=== PATIENT | male | born 1980 | race Caucasian/White ===

== ENCOUNTER 2019-01-09 14:33 | Inpatient (IN) | payer OTHER ==
[~2019-01-09] VITALS: Ht 185.4 cm; Wt 85.0 kg
--- NOTE | 2019-01-09 14:38 | NUR ---
ANYA FROM [facility]; REPORT RECIEVED FROM EMS. PT C/O LEFT CALF PAIN X 2 WEEKS. DX WITH BILATERAL PE AND LEFT DVT. TREATED BLOCK MECHANIC WITH LOVENOX AND NORCO. EKG TAKEN ON ARRIVAL. ALL MONITORS IN PLACE. CALL LIGHT IN REACH. JACOB CADE AT BEDSIDE FOR INITIAL ASSESSMENT. Addendum: 01/09/19 at 1542 by PHYLLIS ANYA FROM [facility]; REPORT RECIEVED FROM EMS. PT C/O LEFT CALF PAIN X 2 WEEKS. DX WITH BILATERAL PE AND LEFT DVT. TREATED BLOCK MECHANIC WITH LOVENOX AND NORCO. EKG TAKEN ON ARRIVAL. ALL MONITORS IN PLACE. CALL LIGHT IN REACH. JACOB CADE AT BEDSIDE FOR INITIAL ASSESSMENT.
[2019-01-09] MEDS ORDERED: COLC0.6T37 PO (15:33)
[2019-01-09] MEDS ORDERED: IBUP-1484 PO (15:33)
--- NOTE | 2019-01-09 15:40 | NUR ---
pt resting on gurney, all monitors in place, remains nsr on cardiac rn. pt is a&o, resps even and unlabored, denies chest pain/pressure/sob. awaiting admit order and room assignment at this time.
[2019-01-09] MEDS ORDERED: HYDROcodone/APAP 5/325 TABLET ONE (16:14)
--- NOTE | 2019-01-09 16:17 | NUR ---
PT A&O, RESPS EVEN AND UNLABORED. NSR ON CAMERA TECHNICIAN, NO ECTOPY. PT MEDICATED FOR 7/10 LEFT CALF PAIN. AWAITING CARD TELE ROOM ASSIGNMENT AND TRANSPORT.
[2019-01-09] MEDS ORDERED: HYDROcodone/APAP 5/325 TABLET PO ONE (16:30)
[2019-01-09] MEDS ORDERED: SODIUM CHLORIDE FLUSH 10ML SYR IVF PRN (16:30)
--- NOTE | 2019-01-09 16:46 | NUR ---
hospitalist at bedside to admit pt
--- NOTE | 2019-01-09 17:03 | NUR ---
REPORT CALLED TO RECEIVING CÉSAR BAHENA. PT AWAITING TRANSPORT TO ROOM 515.
--- NOTE | 2019-01-09 17:20 | NUR ---
Per [facility], pt was given lovenox weight based sq injection, dosed 1mg/kg at 1154 this am. This was confirmed by pt. receiving RN notified.
[2019-01-09] MEDS ORDERED: LABETALOL 5MG/ML, 20ML IVPush PRN (17:30)
[2019-01-09] MEDS ORDERED: hydrALAzine 20 MG/ML, 1ML IVPush PRN (17:30)
[2019-01-09] MEDS ORDERED: POLYETHYLENE GLYCOL 17 GM PACKET PO PRN (17:30)
[2019-01-09] MEDS ORDERED: BISACODYL 10 MG SUPP PR PRN (17:30)
[2019-01-09] MEDS ORDERED: DOCUSATE 100 MG CAPSULE PO PRN (17:30)
[2019-01-09] MEDS ORDERED: BACLOFEN 10 MG TABLET PO PRN (17:30)
[2019-01-09] MEDS ORDERED: ENOXAPARIN 80 MG/0.8 ML SQ SCH (17:30)
--- NOTE | 2019-01-09 17:32 | NUR ---
PT WEIGHED USING SCALE, ACCURATE WEIGHT ENTERED IN EMR FOR LOVENOX DOSING. PT PROVIDED WITH CARDIAC MEAL TRAY. PT A&O, RESPS EVEN AND UNLABORED, NSR ON DRYWALL APPLICATOR. VSS. NO COMPLAINT AT THIS TIME. Addendum: 01/09/19 at 1734 by PHYLLIS PT WEIGHED USING SCALE, ACCURATE WEIGHT ENTERED IN EMR FOR LOVENOX DOSING. PT PROVIDED WITH CARDIAC MEAL TRAY. ASPIRATION PRECAUTIONS IN PLACE. PT A&O, RESPS EVEN AND UNLABORED, NSR ON DRYWALL APPLICATOR. VSS. NO COMPLAINT AT THIS TIME.
[2019-01-09 17:33] LABS: BASOPHILS # (AUTO) 0.05 x10^3/uL (0-0.1); BASOPHILS % (AUTO) 1 % (0-1); EOSINOPHILS # (AUTO) 0.15 x10^3/uL (0-0.4); EOSINOPHILS % (AUTO) 2 % (1-7); LYMPHOCYTES # (AUTO) 2.42 x10^3/uL (1-3.4); LYMPHOCYTES % (AUTO) 25 % (22-44); MD NO; MEAN CORPUSCULAR HEMOGLOBIN 31.5 pg (27.5-34.5); MEAN CORPUSCULAR HGB CONC 34.1 g/dL (33.2-36.2); MEAN CORPUSCULAR VOLUME 92.2 fL (81-97); MEAN PLATELET VOLUME 7.9 fL (7.4-10.4); MONOCYTES # (AUTO) 0.53 x10^3/uL (0.2-0.8); MONOCYTES % (AUTO) 6 % (2-9); NEUTROPHILS # (AUTO) 6.59 x10^3/uL (1.8-6.8); NEUTROPHILS % (AUTO) 68 % (42-75); PLATELET COUNT 157 x10^3/uL (130-400); RED BLOOD COUNT 4.64 x10^6/uL (4.38-5.82); RED CELL DISTRIBUTION WIDTH 13.6 % (9.4-14.8)
[2019-01-09 17:44] LABS: FREE T4 (FREE THYROXINE) 0.98 ng/dL (0.76-1.46); TROPONIN I < 0.015 ng/mL (0.000-0.045)
--- NOTE | 2019-01-09 17:45 | NUR ---
PT A&O, NEURO INTACT. RESPS EVEN AND UNLABORED. PT REPORTS LEFT CALF PAIN 3/10, TOLERABLE PER PT. NSR ON TECHNICIAN SEMICONDUCTOR DEVELOPMENT. NAND AT THIS TIME.
[2019-01-09 18:01] LABS: PROTHROMBIN TIME 10.5 Seconds (9.6-11.5)
--- NOTE | 2019-01-09 18:02 | NUR ---
PT REPORTS TO THIS RN THAT WITH HIS FIRST DOSE OF LOVENOX, HE FELT FLUSHED, NAUSEATED, DIZZY AND HAD CHEST PRESSURE. THESE SYMPTOMS RESOLVED WITHIN SEVERAL MINUTES OF ADMIN (AT APPROX 1154 THIS AM), PT DENIES SOB, DENIES RASH/HIVES AT TIME OF INCIDENT. HOSPITALIST MD RICH NOTIFIED. HOSPITALIST STATES SHE PLANS TO CALL PHARMACY FOR RECOMMENDATIONS AND THAT SHE PLANS TO CANCEL LOVENOX ORDER IN FAVOR OF [facility] AFTER SPEAKING WITH PHARMACY. RECEIVING RN SAMANTHA CALLED AND NOTIFIED.
[2019-01-09 18:05] LABS: ALBUMIN 3.8 g/dL (3.4-5.0); ANION GAP 7 mmol/L (5-15); CALCIUM 8.8 mg/dL (8.5-10.1); CHLORIDE 111 mmol/L (98-107); CREATININE 0.89 mg/dL (0.7-1.3)
--- NOTE | 2019-01-09 18:06 | NUR ---
PT TRANSPORTED TO ROOM 515, NADN AT TRANSPORT.
[2019-01-09 18:11] VITALS: BP 110/69
[2019-01-09] MEDS: SODIUM CHLORIDE 0.9% 1,000 ML IV SCH (18:42)
[2019-01-09 19:14] VITALS: BP 106/69
[2019-01-09] MEDS: NICOTINE 7 MG/24 HR PATCH.TD24 TD SCH (21:00)
[2019-01-09] MEDS ORDERED: HEPARIN 5,000 UNITS/ML, 1ML IV ONE (22:00)
[2019-01-09] MEDS: HEPARIN 25,000 UNITS/500ML PMX 500 ML IV PRN (22:21)
[2019-01-09 23:10] LABS: AMPHETAMINE SCREEN, URINE Negative (Negative); BARBITURATE SCREEN, URINE Negative (Negative); BENZODIAZEPINE SCREEN, URINE Negative (Negative); CANNABINOID SCREEN, URINE Positive (Negative); COCAINE SCREEN, URINE Negative (Negative); METHADONE SCREEN, URINE Negative (Negative); OPIATE SCREEN, URINE Positive (Negative)
[2019-01-10 00:16] LABS: TROPONIN I < 0.015 ng/mL (0.000-0.045)
[2019-01-10 00:20] VITALS: BP 105/71
[2019-01-10 03:29] VITALS: BP 110/74
[2019-01-10 05:04] LABS: ALANINE AMINOTRANSFERASE 19 U/L (12-78); ALBUMIN 3.4 g/dL (3.4-5.0); ANION GAP 5 mmol/L (5-15); CALCIUM 8.4 mg/dL (8.5-10.1); CHLORIDE 109 mmol/L (98-107); CHOLESTEROL, TOTAL 187 mg/dL (140-239); CREATININE 0.92 mg/dL (0.7-1.3); TRIGLYCERIDES 160 mg/dL (50-200); VLDL CHOLESTEROL 32 mg/dL (0-25)
[2019-01-10 05:06] LABS: ALKALINE PHOSPHATASE 47 U/L (45-117); BILIRUBIN,TOTAL 0.7 mg/dL (0.2-1.0); CHOL/HDL RATIO 3.2; HDL CHOL % 32 % (26-37); HDL CHOLESTEROL (DIRECT) 59 mg/dL (40-60); LDL CHOLESTEROL,CALCULATED 96 mg/dL (54-169); LDL/HDL RATIO 1.6 (0.5-3.0); TOTAL PROTEIN 6.4 g/dL (6.4-8.2)
[2019-01-10 05:12] LABS: BASOPHILS # (AUTO) 0.01 x10^3/uL (0-0.1); BASOPHILS % (AUTO) 0 % (0-1); EOSINOPHILS # (AUTO) 0.25 x10^3/uL (0-0.4); EOSINOPHILS % (AUTO) 3 % (1-7); LYMPHOCYTES # (AUTO) 3.05 x10^3/uL (1-3.4); LYMPHOCYTES % (AUTO) 41 % (22-44); MD NO; MEAN CORPUSCULAR HEMOGLOBIN 31.6 pg (27.5-34.5); MEAN CORPUSCULAR HGB CONC 34.7 g/dL (33.2-36.2); MEAN CORPUSCULAR VOLUME 91.1 fL (81-97); MEAN PLATELET VOLUME 8.5 fL (7.4-10.4); MONOCYTES # (AUTO) 0.56 x10^3/uL (0.2-0.8); MONOCYTES % (AUTO) 7 % (2-9); NEUTROPHILS # (AUTO) 3.68 x10^3/uL (1.8-6.8); NEUTROPHILS % (AUTO) 49 % (42-75); PLATELET COUNT 146 x10^3/uL (130-400); RED BLOOD COUNT 4.33 x10^6/uL (4.38-5.82); RED CELL DISTRIBUTION WIDTH 13.7 % (9.4-14.8)
[2019-01-10] MEDS: HEPARIN 5,000 UNITS/ML, 1ML IV PRN ×3 (05:27→18:43)
[2019-01-10] MEDS: SODIUM CHLORIDE 0.9% 1,000 ML IV SCH ×2 (06:21→19:44)
[2019-01-10 07:40] VITALS: BP 122/78
[2019-01-10 14:14] VITALS: BP 121/79
[2019-01-10] MEDS: ACETAMINOPHEN 325 MG TABLET PO PRN (18:49)
[2019-01-10] MEDS: NICOTINE 7 MG/24 HR PATCH.TD24 TD SCH (19:45)
[2019-01-10 20:00] VITALS: BP 107/67
[2019-01-10] MEDS: HEPARIN 25,000 UNITS/500ML PMX 500 ML IV PRN (20:44)
[2019-01-10] MEDS: GABAPENTIN 300 MG CAPSULE PO PRN (21:40)
[2019-01-11 00:09] VITALS: BP 113/73
[2019-01-11 00:52] LABS: BASOPHILS % (AUTO) 0 % (0-1); EOSINOPHILS % (AUTO) 4 % (1-7); LYMPHOCYTES # (AUTO) 2.24 x10^3/uL (1-3.4); LYMPHOCYTES % (AUTO) 32 % (22-44); MD NO; MEAN CORPUSCULAR HEMOGLOBIN 31.2 pg (27.5-34.5); MEAN CORPUSCULAR HGB CONC 33.9 g/dL (33.2-36.2); MEAN CORPUSCULAR VOLUME 92.1 fL (81-97); MEAN PLATELET VOLUME 7.8 fL (7.4-10.4); MONOCYTES # (AUTO) 0.45 x10^3/uL (0.2-0.8); MONOCYTES % (AUTO) 7 % (2-9); NEUTROPHILS # (AUTO) 3.93 x10^3/uL (1.8-6.8); NEUTROPHILS % (AUTO) 57 % (42-75); PLATELET COUNT 162 x10^3/uL (130-400); RED BLOOD COUNT 4.26 x10^6/uL (4.38-5.82); RED CELL DISTRIBUTION WIDTH 13.5 % (9.4-14.8)
[2019-01-11 01:05] LABS: ALANINE AMINOTRANSFERASE 21 U/L (12-78); ALBUMIN 3.2 g/dL (3.4-5.0); ANION GAP 5 mmol/L (5-15); CALCIUM 8.2 mg/dL (8.5-10.1); CHLORIDE 110 mmol/L (98-107); CREATININE 0.96 mg/dL (0.7-1.3)
[2019-01-11 01:08] LABS: ALKALINE PHOSPHATASE 48 U/L (45-117); BILIRUBIN,TOTAL 0.5 mg/dL (0.2-1.0); TOTAL PROTEIN 6.5 g/dL (6.4-8.2)
[2019-01-11] MEDS: HEPARIN 5,000 UNITS/ML, 1ML IV PRN ×2 (01:19→14:27)
[2019-01-11 06:58] VITALS: BP 113/73
[2019-01-11] MEDS: MORPHINE SULFATE 4 MG/ML, 1ML IVPush PRN ×3 (07:05→15:52)
[2019-01-11] MEDS: ACETAMINOPHEN 325 MG TABLET PO PRN ×2 (08:29→15:48)
[2019-01-11] MEDS: SODIUM CHLORIDE 0.9% 1,000 ML IV SCH ×2 (08:30→21:25)
[2019-01-11] MEDS: OXYcodone/APAP 5/325MG TABLET PO PRN ×3 (09:48→21:25)
[2019-01-11 11:44] LABS: INTERNATIONAL NORMALIZED RATIO 1.01 (0.93-1.1); PROTHROMBIN TIME 10.6 Seconds (9.6-11.5)
[2019-01-11] MEDS ORDERED: WARFARIN HIGH DOSE PROTOCOL XX SCH (12:00)
[2019-01-11] MEDS: HEPARIN 25,000 UNITS/500ML PMX 500 ML IV PRN (13:30)
[2019-01-11 14:52] VITALS: BP 108/69
[2019-01-11] MEDS ORDERED: WARFARIN 10 MG TABLET PO-COUM ONE (18:00)
[2019-01-11 19:52] VITALS: BP 109/72
[2019-01-11] MEDS: NICOTINE 7 MG/24 HR PATCH.TD24 TD SCH (20:00)
[2019-01-12] MEDS: MORPHINE SULFATE 4 MG/ML, 1ML IVPush PRN (02:52)
[2019-01-12 02:56] VITALS: BP 106/70
[2019-01-12 03:22] LABS: INTERNATIONAL NORMALIZED RATIO 0.93 (0.93-1.1); PROTHROMBIN TIME 9.8 Seconds (9.6-11.5)
[2019-01-12 03:24] LABS: ALBUMIN 3.2 g/dL (3.4-5.0); ANION GAP 4 mmol/L (5-15); CALCIUM 8.2 mg/dL (8.5-10.1); CHLORIDE 108 mmol/L (98-107); CREATININE 0.94 mg/dL (0.7-1.3)
[2019-01-12] MEDS: HEPARIN 5,000 UNITS/ML, 1ML IV PRN (03:58)
[2019-01-12] MEDS: OXYcodone/APAP 5/325MG TABLET PO PRN ×2 (04:46→10:59)
[2019-01-12] MEDS: HEPARIN 25,000 UNITS/500ML PMX 500 ML IV PRN (05:37)
[2019-01-12 07:51] VITALS: BP 106/69
[2019-01-12] MEDS: SODIUM CHLORIDE 0.9% 1,000 ML IV SCH (11:41)
[2019-01-12] MEDS ORDERED: POTASSIUM CHLORIDE 20 MEQ TAB.ER.PRT PO ONE (12:00)
[2019-01-12 14:25] VITALS: BP 118/74
[2019-01-12] MEDS: BACLOFEN 10 MG TABLET PO SCH ×2 (14:29→20:05)
[2019-01-12] MEDS ORDERED: HEPARIN 25,000 UNITS/500ML PMX 500 ML IV PRN (17:00)
[2019-01-12] MEDS: RIVAROXABAN 15 MG TABLET PO SCH (17:09)
[2019-01-12] MEDS ORDERED: WARFARIN 7.5 MG TABLET PO-COUM ONE (18:00)
[2019-01-12] MEDS: NICOTINE 7 MG/24 HR PATCH.TD24 TD SCH (20:05)
[2019-01-12 20:20] VITALS: BP 152/88
[2019-01-12 21:37] VITALS: BP 126/84
[2019-01-13 01:23] VITALS: BP 125/83
[2019-01-13] MEDS: GABAPENTIN 300 MG CAPSULE PO PRN ×4 (01:27→17:25)
[2019-01-13 05:48] LABS: ALBUMIN 3.6 g/dL (3.4-5.0); ANION GAP 5 mmol/L (5-15); CALCIUM 8.9 mg/dL (8.5-10.1); CHLORIDE 110 mmol/L (98-107)
[2019-01-13 05:49] LABS: CREATININE 0.96 mg/dL (0.7-1.3); INTERNATIONAL NORMALIZED RATIO 1.06 (0.93-1.1); PROTHROMBIN TIME 11.1 Seconds (9.6-11.5)
[2019-01-13 07:38] VITALS: BP 100/70
[2019-01-13] MEDS: RIVAROXABAN 15 MG TABLET PO SCH ×2 (07:42→17:25)
[2019-01-13] MEDS: BACLOFEN 10 MG TABLET PO SCH ×2 (07:43→15:16)
[2019-01-13 13:15] VITALS: BP 129/80
[2019-01-13] MEDS ORDERED: GABA300C10 PO (16:52)
[2019-01-13] MEDS ORDERED: RIVA20TA PO (16:52)
[2019-01-13] MEDS ORDERED: NICO-485 TD (16:52)
[2019-01-13] MEDS ORDERED: RIVA15TA PO (16:52)
== END 2019-01-13 18:51 | disposition home or self-care (01) | DRG 299 ==
LOC: ED 15:47 → EDIP 16:06 → 5SO 18:09
PROVIDERS: ADMIT Hospitalist; ATTEND Hospitalist
DX: I82.412 Acute embolism and thrombosis of left femoral vein (principal); I26.99 Other pulmonary embolism without acute cor pulmonale; E46 Unspecified protein-calorie malnutrition; F12.90 Cannabis use, unspecified, uncomplicated; F17.210 Nicotine dependence, cigarettes, uncomplicated; F90.9 Attention-deficit hyperactivity disorder, unspecified type; Z68.24 Body mass index [BMI] 24.0-24.9, adult; Z82.49 Family history of ischemic heart disease and other diseases of the circulatory system; Z87.442 Personal history of urinary calculi; Z71.6 Tobacco abuse counseling
CPT/HCPCS: 36415; 80048; 80053; 80061; 80307; 82040; 84439; 84443; 84484; 85025; 85520; 85610; 85730; 93005; 93306; 99285; G0378; J1644; J7030

== ENCOUNTER 2019-02-28 17:51 | Emergency (ER) | payer MEDICAID ==
[~2019-02-28] VITALS: Ht 182.9 cm; Wt 88.0 kg
[~2019-02-28 17:51] MED LIST: COLC0.6T37 PO; GABA300C10 PO; IBUP-1484 PO; NICO-485 TD; RIVA15TA PO; RIVA20TA PO
[2019-02-28 18:03] VITALS: BP 104/64
[2019-02-28] MEDS ORDERED: METHOCARBAMOL 750 MG TABLET PO ONE (18:30)
[2019-02-28] MEDS ORDERED: ACETAMINOPHEN 500 MG TABLET PO ONE (18:30)
[2019-02-28] MEDS ORDERED: ACETAMINOPHEN 500 MG TABLET ONE (18:48)
[2019-02-28] MEDS ORDERED: METHOCARBAMOL 750 MG TABLET ONE (18:48)
[2019-02-28 19:05] LABS: BASOPHILS # (AUTO) 0.02 x10^3/uL (0-0.1); BASOPHILS % (AUTO) 0 % (0-1); EOSINOPHILS # (AUTO) 0.16 x10^3/uL (0-0.4); EOSINOPHILS % (AUTO) 3 % (1-7); LYMPHOCYTES # (AUTO) 1.95 x10^3/uL (1-3.4); LYMPHOCYTES % (AUTO) 35 % (22-44); MD NO; MEAN CORPUSCULAR HEMOGLOBIN 31.4 pg (27.5-34.5); MEAN CORPUSCULAR HGB CONC 34.3 g/dL (33.2-36.2); MEAN CORPUSCULAR VOLUME 91.6 fL (81-97); MEAN PLATELET VOLUME 8.6 fL (7.4-10.4); MONOCYTES # (AUTO) 0.32 x10^3/uL (0.2-0.8); MONOCYTES % (AUTO) 6 % (2-9); NEUTROPHILS # (AUTO) 3.08 x10^3/uL (1.8-6.8); NEUTROPHILS % (AUTO) 56 % (42-75); PLATELET COUNT 243 x10^3/uL (130-400); RED BLOOD COUNT 4.85 x10^6/uL (4.38-5.82); RED CELL DISTRIBUTION WIDTH 13.7 % (9.4-14.8)
[2019-02-28 19:15] LABS: CALCIUM 8.8 mg/dL (8.5-10.1); CREATININE 1.01 mg/dL (0.7-1.3)
[2019-02-28 19:24] LABS: ANION GAP 6 mmol/L (5-15); CHLORIDE 110 mmol/L (98-107)
--- NOTE | 2019-02-28 19:42 | NUR ---
LATE ENTRY 190. [facility], DENIES NEEDS AT THIS TIME, CALL LIGHT WITHIN REACH.
== END 2019-02-28 19:54 | disposition home or self-care (01) ==
LOC: ED 19:16
DX: R07.89 Other chest pain (principal); F17.200 Nicotine dependence, unspecified, uncomplicated
CPT/HCPCS: 36415; 71046; 80048; 85025; 93005; 99284

== ENCOUNTER 2019-03-09 05:42 | Emergency (ER) | payer MEDICAID ==
[~2019-03-09] VITALS: Ht 182.9 cm; Wt 89.2 kg
[2019-03-09 05:43] VITALS: BP 108/74
[2019-03-09] MEDS ORDERED: HYDROcodone/APAP 5/325 TABLET PO ONE (06:00)
[2019-03-09] MEDS ORDERED: HYDROcodone/APAP 5/325 TABLET ONE (06:03)
== END 2019-03-09 07:30 | disposition home or self-care (01) ==
LOC: ED 07:20
DX: G89.11 Acute pain due to trauma (principal); R07.89 Other chest pain; X58.XXXA Exposure to other specified factors, initial encounter; Y93.89 Activity, other specified; Y92.89 Other specified places as the place of occurrence of the external cause; Y99.8 Other external cause status
CPT/HCPCS: 93005; 99283

== ENCOUNTER 2019-05-20 20:00 | Emergency (ER) | payer MEDICAID ==
[~2019-05-20] VITALS: Ht 182.9 cm; Wt 86.8 kg
--- NOTE | 2019-05-20 20:09 | NUR ---
PATIENT PRESENTS TO ED TODAY FOR HEADACHE, NAUSEA, BODY ACHES, CONGESTION, AND COUGH. AWAITING MD ORDERS, SOTERO. CALL LIGHT WITHIN REACH.
--- NOTE | 2019-05-20 20:12 | NUR ---
PATIENT REPORTS RECENT DVT'S AND PE IN 01/2019. PA AT BEDSIDE. FAMILY AT BEDSIDE. REVENUE FIELD AUDITOR ON PATIENT.
[2019-05-20] MEDS ORDERED: DIPHENHYDRAMINE 25 MG CAPSULE ONE (20:19)
[2019-05-20] MEDS ORDERED: ONDANSETRON ODT 4 MG ONE (20:19)
[2019-05-20] MEDS ORDERED: ACETAMINOPHEN 325 MG TABLET ONE (20:20)
--- NOTE | 2019-05-20 20:22 | NUR ---
PATIENT IN XRAY.
[2019-05-20] MEDS ORDERED: DIPHENHYDRAMINE 25 MG CAPSULE PO ONE (20:30)
[2019-05-20] MEDS ORDERED: ACETAMINOPHEN 325 MG TABLET PO ONE (20:30)
[2019-05-20] MEDS ORDERED: ONDANSETRON ODT 4 MG PO ONE (20:30)
--- NOTE | 2019-05-20 20:46 | NUR ---
RESULTS BACK, CHART UP FOR RECHECK.
--- NOTE | 2019-05-20 20:52 | NUR ---
PATIENT SITTING IN GURNEY SPEAKING WITH FAMILY AT BEDSIDE, REPORTS CHIRINOS FEELS SLIGHTLY BETTER AFTER MEDICATIONS, NADN. AWAITING FURTHER ORDERS.
--- NOTE | 2019-05-20 21:17 | NUR ---
Discharge instructions discussed with patient including when to return to emergency department, patient verbalizes understanding. Prescriptions provided with instruction for use. Patient ambulates with steady gait to discharge desk with family member in no acute distress.
[2019-05-20 21:18] VITALS: BP 115/68
== END 2019-05-20 21:20 | disposition home or self-care (01) ==
LOC: ED 20:10
DX: R51 Headache (principal); J06.9 Acute upper respiratory infection, unspecified; F17.210 Nicotine dependence, cigarettes, uncomplicated; Z86.718 Personal history of other venous thrombosis and embolism
CPT/HCPCS: 71046; 93005; 99284; Q0162; Q0163

== ENCOUNTER 2020-05-15 04:17 | Emergency (ER) | payer BC, MEDICAID ==
[~2020-05-15] VITALS: Ht 182.9 cm; Wt 92.9 kg
[~2020-05-15 04:17] MED LIST changes: -IBUP-1484 PO; +IBUP-1902 PO
[2020-05-15] MEDS ORDERED: HYDROmorphone 2 MG/ML, 1ML IVPush PRN (05:00)
[2020-05-15] MEDS ORDERED: KETOROLAC 30 MG/1 ML IVPush ONE (05:00)
[2020-05-15] MEDS ORDERED: SODIUM CHLORIDE 0.9% 1,000ML IV ONE (05:00)
[2020-05-15] MEDS ORDERED: SODIUM CHLORIDE FLUSH 10ML SYR IVF ONE (05:00)
[2020-05-15] MEDS ORDERED: ONDANSETRON 2MG/ML, 2ML IVPush ONE (05:00)
[2020-05-15] MEDS ORDERED: KETOROLAC 30 MG/1 ML ONE (05:08)
[2020-05-15] MEDS ORDERED: ONDANSETRON 2MG/ML, 2ML ONE (05:09)
[2020-05-15] MEDS ORDERED: HYDROmorphone 1 MG/ML, 1ML INJ ONE (05:09)
--- NOTE | 2020-05-15 05:27 | NUR ---
LATE NOTE: PT TO ED WITH C/O OF FLANK PAIN AND BLADDER PAIN. REPORTS LAST VOID WAS YESTERDAY MORNING. MONITORING IN PLACE, CALL LIGHT WITHIN REACH, ALL SAFETY MEASURES IN PLACE. IV PLACED, PT MEDICATED PER JAN. PT REFUSED UA AT THIS TIME. PT TO CT AT THIS TIME.
[2020-05-15 05:43] LABS: BASOPHILS # (AUTO) 0.02 x10^3/uL (0-0.1); BASOPHILS % (AUTO) 0 % (0-1); EOSINOPHILS # (AUTO) 0.09 x10^3/uL (0-0.4); EOSINOPHILS % (AUTO) 1 % (1-7); LYMPHOCYTES # (AUTO) 1.62 x10^3/uL (1-3.4); LYMPHOCYTES % (AUTO) 24 % (22-44); MD NO; MEAN CORPUSCULAR HEMOGLOBIN 30.8 pg (27.5-34.5); MEAN CORPUSCULAR HGB CONC 32.6 g/dL (33.2-36.2); MEAN CORPUSCULAR VOLUME 94.4 fL (81-97); MEAN PLATELET VOLUME 8.4 fL (7.4-10.4); MONOCYTES # (AUTO) 0.34 x10^3/uL (0.2-0.8); MONOCYTES % (AUTO) 5 % (2-9); NEUTROPHILS # (AUTO) 4.67 x10^3/uL (1.8-6.8); NEUTROPHILS % (AUTO) 69 % (42-75); PLATELET COUNT 190 x10^3/uL (130-400); RED BLOOD COUNT 4.65 x10^6/uL (4.38-5.82); RED CELL DISTRIBUTION WIDTH 13.7 % (9.4-14.8)
[2020-05-15 05:51] LABS: ALBUMIN 3.7 g/dL (3.4-5.0); ANION GAP 6 mmol/L (5-15); CALCIUM 8.8 mg/dL (8.5-10.1); CHLORIDE 112 mmol/L (98-107)
[2020-05-15 05:54] LABS: ALANINE AMINOTRANSFERASE 25 U/L (12-78); ALKALINE PHOSPHATASE 34 U/L (45-117); BILIRUBIN,TOTAL 0.4 mg/dL (0.2-1.0); CREATININE 1.22 mg/dL (0.7-1.3); TOTAL PROTEIN 6.7 g/dL (6.4-8.2)
--- NOTE | 2020-05-15 06:10 | NUR ---
PT ATTEMPTING UA.
--- NOTE | 2020-05-15 06:57 | NUR ---
Report from Alanna LINDSEY. Pt resting in bed, SOTERO, denies needs. Pt denies pain at this time.
[2020-05-15 07:08] LABS: MICROSCOPIC AUTO
[2020-05-15 08:02] VITALS: BP 105/64
== END 2020-05-15 08:04 | disposition home or self-care (01) ==
LOC: ED 07:58
DX: N13.2 Hydronephrosis with renal and ureteral calculous obstruction (principal); R31.9 Hematuria, unspecified; Z86.718 Personal history of other venous thrombosis and embolism; Z86.711 Personal history of pulmonary embolism
CPT/HCPCS: 36415; 76770; 80053; 81001; 85025; 96374; 96375; 99284; J1170; J1885; J2405; J7030

== ENCOUNTER → 2020-05-27 | Outpatient (CLI) | payer BC | END | disposition home or self-care (01) | LOC: RAD 10:05 | PROVIDERS: ATTEND Student in an Organized Health Care Education/Training Program | DX: N20.0 Calculus of kidney (principal) | CPT/HCPCS: 74018 ==

== ENCOUNTER 2020-07-13 15:45 | Emergency (ER) | payer BC ==
[~2020-07-13] VITALS: Ht 182.9 cm; Wt 89.9 kg
--- NOTE | 2020-07-13 16:41 | NUR ---
PHP [employer] DEVELOPER: PT TO ROOM FROM [facility]
--- NOTE | 2020-07-13 17:00 | NUR ---
PT RESTING IN GURNEY, SUPINE. NAD NOTED. PT REPORTS R LOW BACK SPASM SINCE LITHOTRIPSY. WORSENS WITH MOVEMENT AND IS RELIEVED WITH LYING FLAT. DENIES RECENT TRAUMA/INJURY, DENIES BLOOD IN URINE OR INCONTINENCE. PT DOES ADMIT INTERMITTENT R GLUTE NUMBNESS/TINGLING. HX OF RENAL STONES, DVT, AND PE. BP/SPO2 MONITORING IN PLACE. FRIEND AT BEDSIDE.
--- NOTE | 2020-07-13 17:27 | NUR ---
PT AMBULATED STEADILY TO BATHROOM TO PROVIDE UA
[2020-07-13] MEDS ORDERED: CYCLOBENZAPRINE 10 MG TABLET ONE (17:38)
[2020-07-13] MEDS ORDERED: KETOROLAC 30 MG/1 ML ONE (17:38)
[2020-07-13 17:53] LABS: MICROSCOPIC NOT IND
[2020-07-13 17:53] LABS: BASOPHILS # (AUTO) 0.02 x10^3/uL (0-0.1); BASOPHILS % (AUTO) 0 % (0-1); EOSINOPHILS # (AUTO) 0.16 x10^3/uL (0-0.4); EOSINOPHILS % (AUTO) 3 % (1-7); LYMPHOCYTES # (AUTO) 2.11 x10^3/uL (1-3.4); LYMPHOCYTES % (AUTO) 34 % (22-44); MD NO; MEAN CORPUSCULAR HEMOGLOBIN 31.4 pg (27.5-34.5); MEAN CORPUSCULAR HGB CONC 33.9 g/dL (33.2-36.2); MEAN CORPUSCULAR VOLUME 92.7 fL (81-97); MEAN PLATELET VOLUME 8.3 fL (7.4-10.4); MONOCYTES # (AUTO) 0.48 x10^3/uL (0.2-0.8); MONOCYTES % (AUTO) 8 % (2-9); NEUTROPHILS % (AUTO) 55 % (42-75); PLATELET COUNT 209 x10^3/uL (130-400); RED CELL DISTRIBUTION WIDTH 13.4 % (9.4-14.8)
[2020-07-13] MEDS ORDERED: KETOROLAC 30 MG/1 ML IVPush ONE (18:00)
[2020-07-13] MEDS ORDERED: CYCLOBENZAPRINE 10 MG TABLET PO ONE (18:00)
[2020-07-13 18:02] LABS: ALANINE AMINOTRANSFERASE 28 U/L (12-78); ALBUMIN 3.5 g/dL (3.4-5.0); ANION GAP 3 mmol/L (5-15); CALCIUM 8.8 mg/dL (8.5-10.1); CHLORIDE 110 mmol/L (98-107); CREATININE 1.18 mg/dL (0.7-1.3)
[2020-07-13 18:05] LABS: ALKALINE PHOSPHATASE 43 U/L (45-117); BILIRUBIN,TOTAL 0.4 mg/dL (0.2-1.0); TOTAL PROTEIN 6.6 g/dL (6.4-8.2)
[2020-07-13 18:42] VITALS: BP 118/75
== END 2020-07-13 18:44 | disposition home or self-care (01) ==
LOC: ED 17:30
DX: S39.012A Strain of muscle, fascia and tendon of lower back, initial encounter (principal); R11.0 Nausea; Z86.718 Personal history of other venous thrombosis and embolism; X58.XXXA Exposure to other specified factors, initial encounter; Y93.89 Activity, other specified; Y92.89 Other specified places as the place of occurrence of the external cause; Y99.8 Other external cause status
CPT/HCPCS: 36415; 80053; 81003; 83690; 85025; 96374; 99283; J1885

== ENCOUNTER 2021-02-16 17:07 | Emergency (ER) | payer BC, OTHER ==
[~2021-02-16] VITALS: Ht 182.9 cm; Wt 84.7 kg
--- NOTE | 2021-02-16 17:59 | NUR ---
PHYSICIST CRYOGENICS: PT TO ROOM FROM LOBBY
[2021-02-16] MEDS ORDERED: FAMOTIDINE 20 MG TABLET PO ONE (18:00)
[2021-02-16] MEDS ORDERED: FAMOTIDINE 20 MG TABLET ONE (18:19)
--- NOTE | 2021-02-16 18:24 | NUR ---
THIS IS A 40 YEAR OLD MALE WHO C.O ALLERGIC REACTION, FEELS LIKE THROAT IS SWELLING, TOOK 3 BENADRYL AT 1100, HX OF SAME OVER LAST FEW YEARS, MEDICATED PER MAR, DISCUSSED PLAN OF CARE, FRIEND AT BS
[2021-02-16 20:15] VITALS: BP 120/79
== END 2021-02-16 20:40 | disposition home or self-care (01) ==
LOC: ED 20:11
DX: T78.3XXA Angioneurotic edema, initial encounter (principal); Z87.891 Personal history of nicotine dependence
CPT/HCPCS: 99283; J7512

== ENCOUNTER 2021-03-27 00:11 | Emergency (ER) | payer OTHER ==
[~2021-03-27] VITALS: Ht 182.9 cm; Wt 86.0 kg
--- NOTE | 2021-03-27 00:41 | NUR ---
PT STATES HAS HAD PROBLEMS WITH THE UVULA SWELLING AND GAGING WHEN THIS HAPPENS FOR THE LAST 3 YEARS. PT WAS SEEN APPROXIMATELY 1.5 MONTHS AGO AND WAS GIVNE DEXAMETHASONE A ONE TIME DOSE FOR THE EVENT THE SWELLING DID NOT SUBSIDE WITH BENADRYL. PT STATES IS TRYING TO FIND OUT WHAT IS THE CAUSING AGENT. STOPPED DRINKING ALCOHOL THAT DOES EXASPERATE ITS SWELLING. PT ABLE TO SPEAK IN FULL SENTENCES AND IS SATURRATING AT 97% ON RA.
[2021-03-27 01:47] VITALS: BP 112/67
--- NOTE | 2021-03-27 01:49 | NUR ---
Patientgiven discharge instructions and they have confirmed that they understand the instructions. Patient ambulatory with steady gait. No Questions at time of discharge.
== END 2021-03-27 01:51 | disposition home or self-care (01) ==
LOC: ED 01:32
DX: R60.9 Edema, unspecified (principal); Z86.718 Personal history of other venous thrombosis and embolism
CPT/HCPCS: 87081; 87880; 99283